=== PATIENT | male | born 1965 | race Caucasian/White ===

== ENCOUNTER 2017-10-02 06:07 | Day surgery (SDC) | payer OTHER ==
[2017-09-28 14:34] LABS: BASOPHILS % (AUTO) 0.5 % (0-1); EOSINOPHILS # (AUTO) 0.1 X10'3 (0-0.9); EOSINOPHILS % (AUTO) 2.6 % (0-6); LYMPHOCYTES # (AUTO) 1.6 X10'3 (1.1-4.8); LYMPHOCYTES % (AUTO) 28.8 % (21-51); MEAN CORPUSCULAR HEMOGLOBIN 30.8 PG (27.0-31.0); MEAN CORPUSCULAR HGB CONC 34.8 % (33.0-36.5); MEAN CORPUSCULAR VOLUME 88.7 FL (78-98); MEAN PLATELET VOLUME 7.9 FL (7.4-10.4); MONOCYTES # (AUTO) 0.4 X10'3 (0-0.9); MONOCYTES % (AUTO) 7.5 % (2-12); NEUTROPHILS # (AUTO) 3.4 X10'3 (1.8-7.7); NEUTROPHILS % (AUTO) 60.6 % (42-75); PRE OP HEMATOCRIT 44.2 % (42.0-52.0); PRE OP HEMOGLOBIN 15.4 g/dL (14.0-17.9); PRE OP PLATELET COUNT 322 X10'3 (140-440); RED BLOOD COUNT 4.99 X10'6 (4.70-6.10); RED CELL DISTRIBUTION WIDTH 12.7 % (11.5-14.5)
[2017-09-28 14:38] LABS: CLARITY,URINE Clear (Clear); GLUCOSE, URINE Negative (Neg); KETONES,URINE Negative (Neg); LEUKOCYTE ESTERASE ,URINE Negative (Neg); NITRITES, URINE Negative (Neg); OCCULT BLOOD,URINE Negative (Neg); PROTEIN,URINE Negative (Neg); UROBILINOGEN,URINE 0.2 E.U/dL (0.2-1.0)
[2017-09-28 14:42] LABS: COLOR,URINE STRAW (Yellow); UA COLLECTION TYPE NON-SPECIFIED
[2017-09-28 14:48] LABS: ALBUMIN 4.3 G/DL (3.4-5.0); ALBUMIN/GLOBULIN RATIO 1.3 (1.1-1.5); ALKALINE PHOSPHATASE 61 IU/L (46-116); BLOOD UREA NITROGEN 13 MG/DL (7-18); BUN/CREATININE RATIO 15.9 (5.4-32.0); CALCIUM 8.9 MG/DL (8.5-10.1); CHLORIDE 103 MMOL/L (99-107); CREATININE 0.82 MG/DL (0.60-1.10); PRE OP ALT 24 U/L (30-65); PRE OP ANION GAP 8 (8-16); PRE OP AST 13 U/L (10-37); PRE OP BILIRUB, TOTAL 1.2 MG/DL (0.0-1.0); PRE OP GLUCOSE 95 MG/DL (70-104); PRE OP POTASSIUM 4.2 MMOL/L (3.4-5.1); PRE OP SODIUM 142 MMOL/L (135-145); TOTAL CARBON DIOXIDE 31.5 MMOL/L (24-32); TOTAL PROTEIN 7.7 G/DL (6.4-8.2); eGFR > 90 ML/MIN
[2017-10-02] VITALS (18 sets, daily range): BP systolic 116–172; BP diastolic 45–83
[~2017-10-02] VITALS: Ht 175.3 cm; Wt 83.4 kg
[~2017-10-02 06:07] MED LIST: CETI-102 PO; MULT-38 PO; cefazolin/dext.iso 2gm/50ml 50 ML IV ONE; famotidine 20mg tablet PO ONE; ringers solution, lacted 1,000 ML IV SCH
[2017-10-02] MEDS ORDERED: LIDOcaine 1% (10mg/ml) 2ml vial ONE (06:22)
[2017-10-02] MEDS ORDERED: ceFAZolin 1000mg inj ONE (06:59)
[2017-10-02] MEDS ORDERED: LIDOcaine 1% 30ml vial 0 ML ONE (06:59)
[2017-10-02] MEDS ORDERED: BUPIVAcaine/PF 2.5 mg/ml (0.25%) 30ml vial ONE (07:00)
[2017-10-02] MEDS ORDERED: sevoflurane 250ml liquid IH ONE (08:30)
[2017-10-02] MEDS ORDERED: propofol inj 20 ML IV ONE (08:33)
[2017-10-02] MEDS ORDERED: LIDOcaine 2% (20mg/ml) 5ml vial ONE (08:33)
[2017-10-02] MEDS ORDERED: midazolam 2 mg/2 ml injection ONE (08:33)
[2017-10-02] MEDS ORDERED: fentaNYL/PF 50MCG/1 ML 2ML syringe ONE (08:33)
[2017-10-02] MEDS ORDERED: ketorolac trometh. 30mg/ml inj. ONE (08:41)
[2017-10-02] MEDS ORDERED: ringers solution, lacted 1,000 ML IV SCH (09:13)
[2017-10-02] MEDS ORDERED: meperidine/PF 50mg/ml syringe IV PRN ×3 (09:15)
[2017-10-02] MEDS ORDERED: morphine 2 MG/ML inj. syringe IV PRN ×2 (09:15)
[2017-10-02] MEDS ORDERED: ondansetron/PF 4mg/2ml inj IV PRN (09:15)
[2017-10-02] MEDS ORDERED: proCHLORperazine 10 MG/2 ml inj IV PRN (09:15)
== END 2017-10-02 12:28 | disposition home or self-care (01) ==
LOC: PAS 06:07
PROVIDERS: ATTEND Surgery
DX: K40.90 Unilateral inguinal hernia, without obstruction or gangrene, not specified as recurrent (principal); J45.909 Unspecified asthma, uncomplicated; Z98.52 Vasectomy status; Z98.890 Other specified postprocedural states; Z72.89 Other problems related to lifestyle
CPT/HCPCS: 36415; 49505; 80053; 81003; 85025; 93005; A6449; C1781; J0690; J1885; J2001; J2250; J2704; J3010; J3490; J7120; A7000